=== PATIENT | female | born 1985 | race Caucasian/White ===

== ENCOUNTER 2019-09-27 11:01 | Outpatient (CLI) | payer BC, SELFPAY ==
--- NOTE | ~2019-09-27 | US_ITS ---
EXAMINATION: US right upper quadrant DATE: 09/27/2019 11:43 INDICATION: Right upper quadrant pain TECHNIQUE: Multiple grayscale and Doppler ultrasound images of the abdomen were obtained. COMPARISON: None available FINDINGS: The head, body, and tail of the pancreas are normal. The liver is normal with normal echoge nicity and echotexture. No surface nodularity. Normal hepatopetal flow in the main portal vein. There are multiple stones in the nondistended gallbladder. No pericholecystic fluid is identified. The gal lbladder wall thickness measures up to 4 mm however the gallbladder is contracted. The normal common bile duct measures 4 mm. Sonographic Looney sign is positive. IMPRESSION: 1. Cholelithiasis and positive sonographic Looney sign without pericholecystic fluid. Findings are eq uivocal for cholecystitis. Consider further evaluation with nuclear hepatobiliary scan. Reviewed, dictated and finalized at location A. IMPRESSION: 1. Cholelithiasis and positive sonographic Looney sign without pericholecystic fluid. Findings are equivocal for cholecystitis. Consider further evaluation wi nuclear hepatobiliary scan.
== END 2019-09-27 11:02 | disposition home or self-care (01) ==
PROVIDERS: PCP Family Medicine; Visit Provider Physician Assistant
DX: K80.20 Calculus of gallbladder without cholecystitis without obstruction (principal)
CPT/HCPCS: 76705

== ENCOUNTER 2019-11-02 08:23 | Outpatient (CLI) | payer BC, SELFPAY ==
[2019-11-02 08:41] LABS: Hematocrit 39.1 % (37.0-47.0); Hemoglobin 13.4 g/dL (12.0-15.0); Mean Corpuscular HGB Conc 34.3 g/dl (32-36); Mean Corpuscular Hemoglobin 31.2 pg (26-34); Mean Corpuscular Volume 90.9 fl (80-100); Mean Platelet Volume 8.7 fl (7.4-10.4); Platelet Count Result 270 k/mm3 (150-375); Red Cell Distribution Width 12.5 % (11.5-14.5)
[2019-11-02 08:54] LABS: Alanine Aminotransferase 15 U/L (4-35); Albumin Level 4.2 g/dL (3.5-5.1); Alkaline Phosphatase 57 U/L (38-126); Amylase 55 U/L (30-110); Anion Gap 6 mmol/L (8-16); Aspartate Amino Transferase 19 U/L (14-36); Bilirubin,Total 0.3 mg/dL (0.2-1.3); Blood Urea Nitrogen 11 mg/dL (7-17); Calcium 8.8 mg/dL (8.4-10.2); Carbon Dioxide 25 mmol/L (22-30); Chloride 106 mmol/L (98-107); Estimated Glomerular Filt Rate > 60; Glucose 108 mg/dL (65-105); Lipase 64 U/L (23-300); Potassium 4.2 mmol/L (3.4-5.0); Sodium 137 mmol/L (137-145)
== END 2019-11-02 08:24 | disposition home or self-care (01) ==
LOC: ANHSURGERY 08:25
PROVIDERS: PCP Family Medicine; Visit Provider Surgery
DX: K80.10 Calculus of gallbladder with chronic cholecystitis without obstruction (principal)
CPT/HCPCS: 36415; 80053; 82150; 82248; 83690; 85027

== ENCOUNTER 2019-11-07 00:28 | Outpatient (CLI) | payer BC, SELFPAY ==
[2019-11-07 16:39] LABS: SARS-CoV-2 RNA PCR Negative
== END 2019-11-07 00:29 | disposition home or self-care (01) ==
LOC: ANHCOVIDDT 00:29
PROVIDERS: PCP Family Medicine; Visit Provider Surgery
DX: Z01.812 Encounter for preprocedural laboratory examination (principal); Z20.828 Contact with and (suspected) exposure to other viral communicable diseases
CPT/HCPCS: 87635; C9803; U0003

== ENCOUNTER 2019-11-09 01:41 | Day surgery (SDC) | payer BC, SELFPAY ==
[2019-10-26 16:33] VITALS: BMI 36.6
[2019-11-09] VITALS (9 sets, daily range): BP systolic 109–140; BP diastolic 62–95; PULSE 68–97; RESP 12–20; TEMP 36.9–37.2; O2SAT 96–100
--- NOTE | 2019-11-09 10:02 | WPDANESEPPF ---
Anes - Initial Pre Proc Eval Procedure: Operation Date: 11/09/19 12:00 Proposed Procedures p Laparoscopic Cholecystectomy, Possible Intraoperative Cholangiogram, Possible Open - Shilo Palafox MD Date/Time: 11/09/19 10:02 Surgeon: Shilo Palafox MD Pre Op Diagnosis: Chronic Cholecystitis With Cholelithiasis Patient Data Age: 34 Gender: F Height: 1.57 m Weight: 91 kg Allergies Allergy/AdvReac Type Severity Reaction Status Date / Time No Known Allergies Allergy Unknown Verified 11/09/19 11:16 Home Medications Medication Instructions Recorded Confirmed Type No Home Medications 10/03/19 11/09/19 History Patient hx anesthesia problems: none Family hx anesthesia problems: none [facility] Social History Social History Smoking status: Never smoker Alcohol intake: current Substance use: never Living arrangements: with family Additional occupation/education comments: stay at home mother Gender identity (if verbalized by the patient): Female Spiritual care concerns: No Anes - Eval Final PreProcedure Day of Procedure 11/09/19 10:02 Patient weight: obese Heart: regular rate and rhythm Lungs: clear to auscultation and normal air movement Airway: Mallampati scale class II Neurological: alert and oriented Last oral intake: >/= 8 hours ASA classification: II Emergent: no Anesthetic plan: proceed Anesthesia type and monitoring: general ETT and standard monitoring Informed Consent: The patient's anesthetic plan and its attendant risks and benefits were discussed with the patient/family/POA. Questions were solicited and answers provided to the satisfaction of the patient/family/POA.
[2019-11-09] MEDS: ACETAMINOPHEN 500 MG TABLET 1000 MG PO (10:33)
[2019-11-09] MEDS: KETOROLAC 15 MG/ML VIAL (*BKC) IV PUSH (11:09)
[2019-11-09] MEDS: LACTATED RINGERS 1,000 ML 30 ML IV CONT ×2 (11:09→13:32)
--- NOTE | 2019-11-09 11:14 | PM.HPGS ---
History of Present Illness History of Present Illness Consent: Risks, benefits, and alternatives A laparoscopic cholecystectomy, possible open, with possible intraoperative cholangiogram have been discussed and questions answered. Patient agrees to proceed with procedure. Chief complaint: Chronic Cholecystitis With Cholelithiasis Narrative: Sheeba Herring is a 34 year old female that presents to the office at the request of Dr Fine for an evaluation of abdominal pain. Patient had a RUQ US on 09/27/2019 at [facility] that showed cholelithiasis and positive sonographic Looney sign without pericholecystic fluid. Patient reports that she first noticed RUQ pain over the last 3 years now looking back. She reports that first tried to cut out food to help narrow it down what was causing her symptoms. She reports now she is having pain with almost everything she is eating. She reports that over the week prior to her recent office visit she has not had a bad episode of pain. She reports when she does have an episode she has pain in the RUQ under her ribs. She reports that it comes on very quickly and intense and last a few hours. She reports then it will gradually go away. She reports that she has tried using a heating pad on the RUQ and this does help somewhat. She reports her mother had her gallbladder removed due to gallstones when she was in her early 50s. Patient denies any abdominal surgeries in the past. 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 Since her office visit and being more strict on the low fat diet she has had just one time in the interim that she had some mild upper abdominal pain after eating. Review of Systems Constitutional: Constitutional: Reports no additional constitutional complaints, Reports fatigue and Denies malaise Eyes: Eyes: Denies change in vision and Denies loss of vision ENT: Reports Normal hearing present, Denies change in voice, Denies dizziness, Denies hoarseness and Denies sore throat Cardiovascular: Cardiovascular: Denies chest pain, Denies leg edema and Denies dyspnea Respiratory: Respiratory: Denies cough, Denies dyspnea and Denies wheezing Gastrointestinal: Gastrointestinal: Reports abdominal pain (see HPI), Denies hematochezia, Denies change in bowel habits and Denies heartburn Genitourinary: Genitourinary: Denies urinary frequency and Denies urinary incontinence Neurologic: Reports Normal hearing present, Denies confusion, Denies dizziness, Denies loss of vision, Denies memory loss and Denies seizure-like activity Psychiatric: Psychiatric: Denies confusion, Denies depression and Denies memory loss Endocrine: Endocrine: Denies cold intolerance and Reports fatigue Hematologic/Lymphatic: Hematologic/Lymphatic: Denies easy bleeding and Denies easy bruising Allergic/Immunologic: Allergic/Immunologic: Denies wheezing PMFSH Past Medical History Medical History Asthma History of kidney stones Surgical History Surgical History History of arthroplasty of right knee History of sinus surgery Family History Family History Father No problems noted. Mother Hypertension Grandparent Carcinoma of colon Non-Hodgkin lymphoma Social History Social History Smoking status: Never smoker Alcohol intake: current Substance use: never Living arrangements: with family Additional occupation/education comments: stay at home mother Gender identity (if verbalized by the patient): Female Spiritual care concerns: No Meds Home Medications and Allergies Home Medications Medication Instructions Recorded Confirmed Type No Home Medications 10/03/19 11/09/19 History Allergies
--- NOTE | 2019-11-09 12:02 | WPDHPUPDATE1 ---
History and Physical Update Update Date/Time: 11/09/19 12:02 History and Physical has been reviewed, including an updated exam of the patient. There are NO changes in the patient's condition. Risks, benefits, and alternatives have been discussed and questions answered. Patient agrees to proceed with procedure.
[2019-11-09] MEDS: ceFAZolin 2 GM/D5W 50 ML 2 GM/50 ML BAG IVPB (12:12)
[2019-11-09] MEDS: BUPIVACAINE/EPINEPHRINE 0.5% 30 ML VIAL INFILTRATE (12:40)
--- NOTE | 2019-11-09 13:31 | P.OP_ITS ---
Procedure Note - Detailed Date of procedure: 11/09/19 Pre-op diagnosis: Chronic Cholecystitis With Cholelithiasis Chronic Cholecystitis with Cholelithiasis Post-op diagnosis: same Procedure performed: Laparoscopic Cholecystectomy Description of procedure: Patient was seen preoperatively in the holding area and risks, benefits and alternatives confirmed. Patient was taken to the operating room and general anesthesia was induced. A time out was then preformed with the surgery team confirming patient and site of surgery. The abdomen was prepped and draped in the usual sterile fashion. Incision was made just below the umbilicus with an 11 blade knife. I placed 2 stay sutures of O- Vicryl on either side of the mid- line fascia beneath the umbilicus and was then able to slide in the Olivo cannula through the fascial defect into the peritoneum. First under low flow and then under high flow the abdomen was insufflated with carbon dioxide never exceeding a pressure of 14. Three 5 mm trocars were then introduced under direct vision. The following trocars were introduced under direct vision: a 5 mm in the epigastrium and two 5 mm trocars along the right costal margin laterally in the subcostal area. There were no significant omental adhesions to the underside of the gallbladder. I then carefully used the L-shaped cautery and the [place] dissector to dissect out the triangle of Calot. I then was able to dissect out both the cystic duct and cystic artery and identify a window of safety. The gall bladder was grasped and the cystic duct and artery were dissected free and clipped with a 5 mm endo-clip judicial law clerk. The cystic duct and artery were clipped with use of 2 clips on the patient's side 1 on the gallbladder side utilizing a 5 mm endoclip-judicial law clerk. The cystic duct was then transected. The cystic artery was also transected at this point. The gall bladder was removed using electrocautery and then removed from the abdomen using a large 10 mm grasper via the umbilical incision. In order to get the large stone out of the abdomen within the gallbladder I did make the skin defect slightly larger with an 11 blade knife. The trocars were removed visualizing hemostasis and the remaining gas evacuated. The large trocar site at the umbilicus was closed with use of the 2 stay sutures of 0 Vicryl mentioned above and also a figure of 8 O-Vicryl suture. The 2 stay sutures mentioned above on either side of the fascia were also tied together to help approximate this midline fascia. Further local anesthetic was placed into each incision for postop pain control. The skin incisions were closed with subcuticular suture of 4-0 Monocryl. Surgical glue then was applied to all the incisions. Patient tolerated the procedure well was taken to the recovery room in good condition. Implants: none Anesthesia: GETA Surgeon: Shilo Palafox MD Fireperson: Gaby GAITAN, OR cutting table operator first Estimated blood loss (mL): 10 Drains: No Packing: No Pathology: yes (Gallbladder) Complications: No immediate complications Condition: stable Disposition: PACU Findings: For was thick white in filled with both large and small stones. We had to enlarge the umbilical incision slightly in order to get the largest stone through the opening.
[2019-11-09] MEDS: fentaNYL CITRATE INJ (*CRX) 100 MCG/2 ML VIAL 25 MCG IV PUSH ×6 (13:46→14:28)
[2019-11-09] MEDS: ONDANSETRON INJ 4 MG/2 ML VIAL IV PUSH (15:42)
== END 2019-11-09 16:05 | disposition home or self-care (01) ==
PROVIDERS: PCP Family Medicine; Visit Provider Surgery
PROC: 0FT44ZZ Resection of Gallbladder, Percutaneous Endoscopic Approach (ICD-10-PCS; CPT 47562; principal; 2019-11-09 12:00)
DX: K80.12 Calculus of gallbladder with acute and chronic cholecystitis without obstruction (principal); J45.909 Unspecified asthma, uncomplicated; Z87.442 Personal history of urinary calculi; E66.9 Obesity, unspecified; Z68.38 Body mass index [BMI] 38.0-38.9, adult
CPT/HCPCS: 47562; 88304; A9270; J0690; J1100; J1885; J2250; J2405; J2704; J2710; J3010; J7120

== ENCOUNTER → 2020-11-03 02:24 | Outpatient (CLI) | payer BC, SELFPAY ==
[2020-11-03 19:29] LABS: SARS-CoV-2 RNA PCR Negative
== END ==
PROVIDERS: PCP Family Medicine; Visit Provider Physician Assistant
DX: Z20.822 Contact with and (suspected) exposure to COVID-19 (principal)
CPT/HCPCS: C9803; U0003; U0005